=== PATIENT | female | born 1935 | race Caucasian/White ===

== ENCOUNTER 2016-08-28 15:46 | Inpatient (IN) | payer OTHER ==
--- NOTE | ~2016-08-28 | US77 ---
[facility] A Service of [facility] RADIOLOGY TEXT RESULTS PATIENT: TAMIKO ROCKWELL LOCATION: [facility] : 35 UNIT #: [id number] AGE: [address]: Bethany Horne MD SEX: F ORDER DR: [id number] [facility] [address] [facility]. [place], [place] [address] [id number] I MR#: [id number] Acc #: [id number] NAME: TAMIKO ROCKWELL : 1935 SEX: F STUDY DATE/TIME: 09/01/2016 15:05 UNIT: C5B ROOM: 552 STUDY DESCRIPTION: US Kidney Bilateral Complete Attending Physician: Bethany Horne M.D. Ordering Physician: Bethany Horne M.D. Primary Care Physician: No Primary Care Physician MEDICAL IMAGING REPORT This report is preliminary unless electronic signature is present EXAM Bilateral renal ultrasound 09/01/2016 COMPARISON None. HISTORY Acute renal failure with eGFR of 24.3. FINDINGS The right kidney is echogenic. It is small about just under 8 cm in overall size with cortical thinning, but there is no hydronephrosis, solid mass or calcification. The left kidney is normal in size, 11 cm in craniocaudal dimension. Its echogenicity is difficult to head control clerk but there is no solid mass, calcification, or hydronephrosis. The urinary bladder is obscured by bowel gas. IMPRESSION 1. The left kidney appears normal, though the right is small and echogenic. There is no calcification or hydronephrosis on either side. Dictated by... Les Salguero M.D. THIS IS AN ELECTRONICALLY VERIFIED REPORT Les Salguero M.D. at 09/11/2016 4:00 PM ZHANG/rnr TD: 09/01/2016 23:44 JOB #: [id number] [facility] A Service of [facility] RADIOLOGY TEXT RESULTS PATIENT: TAMIKO ROCKWELL LOCATION: [facility] 230-01 : 35 UNIT #: [id number] AGE: [address]: Bethany Horne MD SEX: F ORDER DR: MEDICAL IMAGING REPORT Page 1 of 1 COPY
--- NOTE | ~2016-08-28 | CO ---
Unit #: [id number] #: [id number] Patient: TAMIKO ROCKWELL [id number] [address] [place], [place] [address] [id number] I MR#: [id number] NAME: TAMIKO ROCKWELL ROOM: 552 Age: 81 Sex: F Admission Date: 08/28/2016 : 1935 Attending Physician: Bethany Horne M.D. Primary Care Physician: No Primary Care Physician CONSULTATION REPORT CHIEF COMPLAINT Leukocytosis, sepsis. HISTORY OF PRESENT ILLNESS This is an 81-year-old female. She has multiple medical problems. She came to hospital with a mild declined performance and found to be septic. She is receiving Levaquin and then going to rehab. From a hematology point of view, CBC showed WBC 18, hemoglobin 11.2, MCV 86, and platelets 429. Neutrophils are 82%. I reviewed the peripheral smear. There is a left shift. There is no schistocyte. There are no blasts. (1) morphology is normal. RBC morphology is normal. Creatinine is 2, sodium 132, and LFTs are normal. REVIEW OF SYSTEMS CONSTITUTIONAL: No fever, no chills, no sweats, no weight loss. EYES: No visual symptoms. EARS, NOSE AND THROAT: There is no runny nose or sore throat or difficulty hearing. CARDIOVASCULAR: No chest pain. No shortness of breath. No palpitations. No orthopnea. No PND. RESPIRATORY: No cough. No wheezing. No hemoptysis. GASTROINTESTINAL: No nausea, vomiting, diarrhea, constipation, hematochezia or melena. GENITOURINARY: No urinary frequency, hesitancy or urgency. No blood in the urine. MUSCULOSKELETAL: No muscle or joint pain. NEUROLOGIC: No headache. No numbness or tingling. No weakness. No seizure. PSYCHIATRIC: No anxiety, depression or mood disturbance. ENDOCRINE: No excessive urination or thirst. DERMATOLOGIC: No rash or change in the skin. ALLERGIC/IMMUNOLOGIC: No symptoms. HEMATOLOGIC/LYMPHATIC: Denies any symptoms. PAST MEDICAL HISTORY Includes COPD, hypertension, and diabetes. SURGICAL HISTORY Cholecystectomy. ALLERGIES None. Unit #: [id number] #: [id number] Patient: TAMIKO ROCKWELL SOCIAL HISTORY Used to smoke 1 pack per day for more than 40 years. Denies alcohol. She used to work as a head waiter/waitress. FAMILY HISTORY Negative for cancer. MEDICATIONS Her current medications include: 1. Levemir. 2. Colace. 3. Ferrous gluconate. 4. Aspirin. 5. Zoloft. 6. Lipitor. 7. Synthroid. 8. Levaquin. PHYSICAL EXAMINATION VITALS: Afebrile, pulse 93, respiratory rate 18, O2 saturation 98%, and blood pressure 130/55. GENERAL: Patient is comfortable. ECOG is 0. The patient is pleasant. HEENT: Moist mucosa. Pupils equally reactive to light. Extraocular muscles intact. Sclerae anicteric. No obvious bleeding from nasal mucosa or oral mucosa. Scalp normal. Hearing normal. NECK: No JVD. No lymphadenopathy. LYMPHATIC/HEMATOLOGIC: There is no palpable adenopathy in the neck, axilla or inguinal area. CARDIOVASCULAR: S1, S2. Regular rate and rhythm. No S3 or S4. RESPIRATORY: Chest symmetrical, normal. Clear to auscultation bilaterally. No wheezes, no rales, no rhonchi. No dullness to percussion. ABDOMEN/GASTROINTESTINAL: Abdomen is soft, nontender, nondistended. No hepatosplenomegaly. EXTREMITIES: There is no clubbing, no cyanosis, no edema. No varicose veins. NEUROLOGICAL: Patient is alert, awake and oriented x3. Cranial nerves II-XII are intact. Sensory grossly intact. Motor is 4/5 in all four extremities. Gait is normal. Station is normal. Language is normal. Memory is normal. DTRs +2 in all four extremities. MUSCULOSKELETAL: No joint swelling. No bony tenderness. No muscle tenderness. SKIN: No petechiae, no rash, no ecchymosis. PSYCHIATRIC: No anxiety. No delusions or hallucinations. There is no agitation. Eye contact is normal. Affect is appropriate. There is no flight of ideas. DIAGNOSTIC STUDIES LABORATORY: As mentioned above. ASSESSMENT AND PLAN This is an 81-year-old female with the following active issues: Leukocytosis. It is mild. There is also mild thrombocytosis. This could be due to infection; however, given patient's age, there is a possibility that she may have myeloproliferative disorder. PLAN I will follow the patient outpatient. As an outpatient, we will do flow Unit #: [id number] #: [id number] Patient: TAMIKO ROCKWELL cytometry (2) . In the future, may need bone marrow biopsy. I need to speak to a family member. Patient has some memory problem. Dictated by... Velia Jeter TD: 09/01/2016 06:47 JOB #: [id number] CONSULTATION REPORT Page 1 of 1 X Susi Hart MD X CONSULTATION REPORT
--- NOTE | ~2016-08-28 | EKG ---
PATIENT: TAMIKO ROCKWELL UNIT #: [id number] Ventricular Rate: 99 BPM Atrial Rate: 99 BPM P-R Interval: 126 ms QRS Duration: 70 ms Q-T Interval: 330 ms QTC Calculation(Bezet): 423 ms P Tivoli: 63 degrees Calculated R Tivoli: -46 degrees Calculated T Tivoli: 86 degrees Diagnosis Line: Normal sinus rhythm Diagnosis Line: Left axis deviation Diagnosis Line: Nonspecific T wave abnormality Diagnosis Line: Abnormal ECG Diagnosis Line: When compared with ECG of 22-AUG-2015 19:51, Diagnosis Line: T wave inversion less evident in Anterolateral Diagnosis Line: leads Diagnosis Line: Confirmed by URBAN NIEVES MD ([id number]) on Diagnosis Line: 08/28/2016 10:22:59 PM INTERPRETING MD: JONY
--- NOTE | ~2016-08-28 | TOC ---
Unit #: [id number] #: [id number] Patient: TAMIKO ROCKWELL [id number] [address] [address] [id number] I MR#: [id number] NAME: TAMIKO ROCKWELL. ROOM: 55 Age: 81 Sex: F Admission Date: 08/28/2016 : 1935 Attending Physician: Bethany Horne M.D. Primary Care Physician: No Primary Care Physician TRANSFER OF CARE SUMMARY ANTICIPATED DATE OF DISCHARGE 09/01/2016. PRINCIPAL DIAGNOSES 1. Sepsis secondary to proteus vulgaris urinary tract infection. 2. Acute kidney injury on chronic kidney disease, stage 3, prerenal. Baseline creatinine approximately 1.2. 3. Hypertensive urgency. 4. Diabetes mellitus type 2. Uncontrolled, with hemoglobin A1c of 8.1. 5. Hypothyroidism. Uncontrolled. 6. Acute on likely chronic hypoxic respiratory failure, maintained on 2 liters oxygen per nasal cannula continuously. 7. Iron deficiency anemia. 8. Thrombocytosis secondary to iron deficiency. 9. Chronic leukocytosis. 10. Overflow incontinence, now maintaining Gilbert catheter. 11. Vascular dementia. 12. Medical noncompliance. 13. Chronic obstructive pulmonary disease. 14. Under weight. CONSULTANTS Dr. Hart, oncology. DIAGNOSTIC DATA IMAGING: Chest x-ray on 08/29/2016 with no acute abnormalities. Calcification of the lower neck within the carotid arteries noted. Degenerative changes of the cervical spine bilaterally noted. CLINICAL HISTORY/HOSPITAL COURSE Ms. Rockwell is an 81-year-old female who presented to the emergency department with increasing weakness. Please refer to history and physical for further details. In the emergency department the patient underwent urinalysis, concerning for urinary tract infection. Creatinine was mildly elevated at 1.2. She was subsequently admitted for further evaluation. The patient was started empirically on Rocephin for urinary tract infection. However, her white blood cell count increased, but I will note she remained afebrile. She was empirically changed to Levaquin. Urine culture ultimately grew proteus vulgaris and after discussion with micro lab this organism is sensitive to Levaquin. ill complete a one-week course of Levaquin. Unit #: [id number] #: [id number] Patient: TAMIKO ROCKWELL In regard to the patient's renal function, unfortunately her creatinine has begun to increase during hospitalization. She still has decreased oral intake and I will initiate IV fluids. She also has chronic incontinence and postvoid residual on bladder scan was greater than 300. I suspect her incontinence is overflow and Gilbert catheter has been placed. After discussion with the family, this appears to be a chronic problem at home and I would recommend Gilbert catheter fci. The patient was also significantly hyperglycemic with blood sugars in the 400s. She was not following a diabetic diet at home. I placed her on Levemir here with sliding scale insulin and sugars are now much better controlled. I recommend Levaquin on discharge as well. The patient was also found to be significantly hypothyroid with a TSH greater than 20, though T3 and T4 were low levels of normal. Again, after discussion with the family the patient has not been taking her thyroid medication for at least five or six months. I placed her back on her prior dose and TSH will need to be rechecked in six weeks. The patient was also found to have a mild microcytic anemia and was found to be iron deficient. She also has associated thrombocytosis. She has been placed on oral iron supplementation in addition to Colace. The patient was also found to have uncontrolled hypertension. Medication has been adjusted and on current medications blood pressure is much better controlled. The patient also has significant underlying dementia and was living at home and being monitored by family. I did discuss with the patient's daughter that I would recommend, given the patient's decline over the last year, that she would benefit from long-term nursing care versus a 24-hour care at home. The plan at this point is for the patient to discharge to rehab and I believe discussions regarding long-term care are going to continue there. Assuming the patient's renal function improves following Gilbert catheter placement with some IV fluids, I think she can be discharged to rehab tomorrow. I will note she does have chronic leukocytosis. This is improving on antibiotic therapy, but I am going to ask hematology to evaluate prior to discharge, but any further workup I think can be safely done as an outpatient. Further hospital course to be dictated as an addendum. Dictated by... Bethany Horne M.D. Haile TD: 08/31/2016 11:02 JOB #: [id number] CC: Dillan Marino M.D. Unit #: [id number] #: [id number] Patient: TAMIKO ROCKWELL TRANSFER OF CARE SUMMARY Page 1 of 1 X Bethany Horne MD X TRANSFER OF CARE SUMMARY
--- NOTE | ~2016-08-28 | CR72 ---
[facility] A Service of [facility] RADIOLOGY TEXT RESULTS PATIENT: TAMIKO ROCKWELL LOCATION: [facility] : 35 UNIT #: [id number] AGE: [address]: Bethany Horne MD SEX: F ORDER DR: [id number] [facility] [address] [facility]. [place], [place] [address] [id number] I MR#: [id number] Acc #: [id number] NAME: TAMIKO ROCKWELL : 1935 SEX: F STUDY DATE/TIME: 08/28/2016 16:50 UNIT: C5B ROOM: 2 STUDY DESCRIPTION: CR Chest Single View Portable Attending Physician: Gabriela Trammell M.D. Ordering Physician: Zhen Ross M.D. Primary Care Physician: No Primary Care Physician MEDICAL IMAGING REPORT This report is preliminary unless electronic signature is present EXAM Portable AP view of the chest. COMPARISON August 22, 2015, and January 15, 2014. INDICATIONS 81-year-old female with dyspnea with activity and weakness since yesterday. Hypertension. FINDINGS Cardiomediastinal silhouette is stable. There is stable mild tortuosity of the ascending thoracic aorta. Mild stable left apical pleural parenchymal scarring. No evidence of pneumothorax, pleural effusion or acute airspace disease. Multilevel bilateral degenerative changes of the visualized cervical spine. Calcifications in the bilateral neck, likely within the carotid arteries. IMPRESSION 1. No acute radiographic abnormality of the chest. Normal heart size. 2. Calcifications in the lower neck, possibly within the carotid arteries. 3. Degenerative changes of the cervical spine bilaterally. Dictated by... Tavares Lewis M.D. THIS IS AN ELECTRONICALLY VERIFIED REPORT Tavares Lewis M.D. at 09/02/2016 8:05 PM [place] TD: 08/28/2016 22:36 [facility] A Service of [facility] RADIOLOGY TEXT RESULTS PATIENT: TAMIKO ROCKWELL LOCATION: [facility] 230-01 : 35 UNIT #: [id number] AGE: [address]: Bethany Horne MD SEX: F ORDER DR: JOB #: [id number] MEDICAL IMAGING REPORT Page 1 of 1 COPY
--- NOTE | ~2016-08-28 | HP ---
Unit #: [id number] #: [id number] Patient: TAMIKO ROCKWELL [id number] [address] [address] [id number] I MR#: [id number] NAME: TAMIKO ROCKWELL. ROOM: 55 Age: 81 Sex: F Admission Date: 08/28/2016 : 1935 Attending Physician: Gabriela Trammell M.D. Primary Care Physician: Primary Care Physician No HISTORY AND PHYSICAL CHIEF COMPLAINT Weakness. HISTORY OF PRESENT ILLNESS The patient is an 81-year-old female with past medical history of diabetes, hypothyroidism, COPD, memory loss, who presented to the emergency department for evaluation of the above. History is obtained from chart review and discussion with ER staff as well as from the patient. According to the patient, she was brought to the emergency department because her son thought she "looked bad." She states that she has been weak for the past couple of days. She denies any fever. No cough or cold symptoms. She denies any chest pain. She denies any vomiting or diarrhea. No urinary symptoms. In the emergency department, urinalysis shows findings concerning for urinary tract infection. BUN 44, creatinine 1.2, glucose 353. She was given 1 liter of normal saline as well as a gram of Rocephin. She is being admitted to [facility] for evaluation and further treatment. PAST MEDICAL HISTORY 1. Admission to [facility] 08/21 through 08/25/2015 for hypertensive urgency and urinary retention. 2. Diabetes. 3. Hypothyroidism. 4. COPD with continued tobacco abuse. 5. Memory loss. 6. Hypertension. 7. Hyperlipidemia. PAST SURGICAL HISTORY 1. Cataract extraction. 2. Cholecystectomy. ALLERGIES No known drug allergies. HOME MEDICATIONS 1. Levothyroxine 50 mcg daily. 2. Metformin 500 mg daily. 3. Amlodipine 10 mg daily. 4. Lipitor 20 mg daily. 5. Lisinopril 20 mg daily. Unit #: [id number] #: [id number] Patient: TAMIKO ROCKWELL 6. Aspirin 81 mg daily. 7. Zoloft 50 mg daily. SOCIAL HISTORY The patient lives alone. She smokes a little less than a pack of cigarettes daily. She denies alcohol use. She has a walker. FAMILY HISTORY Notable for her father having emphysema. REVIEW OF SYSTEMS A complete review of systems is negative except as indicated in the HPI. PHYSICAL EXAMINATION VITAL SIGNS: Temperature 97.7, pulse 99, respirations 32, blood pressure 225/114, oxygen saturation 94% on room air. GENERAL: The patient is a female who is awake and alert in no acute distress. HEENT: Head is atraumatic. Mucous membranes are dry. NECK: Supple. Trachea is midline. LUNGS: Clear to auscultation bilaterally. Breathing is mildly labored with conversation. HEART: Regular rate and rhythm. ABDOMEN: Soft, nontender. Bowel sounds present in all four quadrants. EXTREMITIES: Nontender with no pedal edema. NEUROLOGIC: Patient is awake and alert. She is oriented x3. She follows commands. PSYCHIATRIC: The patient is somewhat agitated. She initially is refusing to stay but ultimately was cooperative. SKIN OF EXAMINED AREAS: Warm and dry. DIAGNOSTIC STUDIES LABORATORY: Complete blood count notable for white blood cell count of 14.1. Troponin less than 0.05. Lactic acid 1.8. Urinalysis notable for 2+ leukocyte esterase, positive nitrite, 2+ protein, greater than 1000 glucose, 100-200 wbc's, 4+ bacteria, occasional squamous cells. Comprehensive metabolic panel notable for a sodium of 134, chloride 97, glucose 353, BUN 44, creatinine 1.2, alkaline phosphatase 105, CK 29. IMAGING: Chest x-ray shows no acute abnormality. CARDIOVASCULAR: EKG shows normal sinus rhythm with a rate of 99 beats per minute. ASSESSMENT The patient is an 81-year-old female with: 1. Generalized weakness. 2. Acute kidney injury. The patient's creatinine was 1 on 08/24/2015, it is 1.2 today. She is on lisinopril and metformin which could be contributing. 3. Urinary tract infection. The patient received 1 gram of Rocephin in the emergency department. Urine culture from 08/22/2015 grew greater than 100,000 of mixed Gram-positive likely contaminant. 4. Sepsis with an initial lactic acid of 1.8. 5. Uncontrolled diabetes with a glucose of 353 on comprehensive metabolic panel. 6. Hypothyroidism. 7. Chronic obstructive pulmonary disease with continued tobacco abuse. Unit #: [id number] #: [id number] Patient: TAMIKO ROCKWELL 8. Hypertension, uncontrolled. 9. Hyperlipidemia. 10. Memory loss. PLAN 1. Admit to intermediate level. 2. Healthy-heart consistent carb diet if passes bedside swallow. 3. PT/OT to evaluate and treat. 4. Fall precautions. 5. Normal saline at 75 mL per hour. 6. Blood cultures x2. 7. Urine culture and sensitivity on urine in the lab. 8. Rocephin 1 gram IV daily. 9. Sepsis protocol with repeat lactic acid. 10. Hemoglobin A1c. 11. Low dose sliding scale insulin with Accu-Cheks. 12. TSH. 13. Serial cardiac enzymes. 14. Strict I's and O'. 15. Bladder scan. 16. Check post-void residual. 17. Hold nephrotoxic medications. 18. Neuro checks. 19. P.r.n. hydralazine. 20. Repeat labs in the morning. 21. SCDs for DVT prophylaxis. 22. Additional workup and consultants based on above. Dictated by Velia Tristan/nayana TD: 08/28/2016 23:45 JOB #: [id number] HISTORY AND PHYSICAL Page 1 of 1 X Gabriela Trammell MD X HISTORY AND PHYSICAL
--- NOTE | ~2016-08-28 | DS ---
Unit #: [id number] #: [id number] Patient: TAMIKO ROCKWELL [id number] [facility]. [place], [place] [address] [id number] I MR#: [id number] NAME: TAMIKO ROCKWELL. ROOM: 230 Age: 81 Sex: F Admission Date: 08/28/2016 : 1935 Discharge Date: 09/01/2016 Attending Physician: Bethany Horne M.D. Primary Care Physician: No Primary Care Physician DISCHARGE SUMMARY Please see transfer of care summary as dictated by Dr. Horne from 08/31/2016 for details of hospital course. Today on BMP creatinine returns back at 1.9 with an estimated GFR of 24. Yesterday his creatinine was approximately 1.8. Also noted patient's hemoglobin today was 10.7 and remains with elevated white count of 17.9. Dr. Hart of hematology services saw and evaluated patient and recommended outpatient followup in approximately four weeks. At this point in time we will avoid nephrotoxic medications. Her creatinine now likely represents her new baseline, although she was initially admitted secondary to with normal creatinine of 1.2. It seems likely that this represents her new baseline creatinine level. Will avoid nephrotoxic medications. Recheck a BMP in approximately 7-10 days when the patient is on rehab. But clinically speaking she appears stable for discharge. Overall her long-term prognosis is poor. She likely will go through rehab and consideration for long-term care has already been discussed by Dr. Horne with the patient's daughter. Unfortunately it seems like this patient is declining fairly rapidly, especially over the past few months. Consideration may be given to hospice as well secondary to her history of moderate to severe and end stage dementia. At this point in time, we will plan for discharge to rehab to see how she does and then further disposition after rehab at that point in time. Please see above for transfer of care summary. DISCHARGE MEDICATIONS 1. Zoloft 50 mg p.o. daily. 2. Norvasc 10 mg p.o. daily. 3. Lipitor 20 mg p.o. q.h.s. 4. Hydralazine 50 mg p.o. t.i.d. 5. Levemir 17 units subcu 0800. 6. NovoLog medium dose sliding scale with insulin. Accu-Cheks q. a.c. and q.h.s. 7. Ferrous gluconate 324 mg p.o. daily. 8. Aspirin 81 mg daily. 9. Levaquin 250 mg p.o. daily until 09/04/2016. 10. Synthroid 50 mcg p.o. daily. DISCHARGE CONDITION Stable. Unit #: [id number] #: [id number] Patient: TAMIKO ROCKWELL DISCHARGE DISPOSITION Rehab. LONG-TERM PROGNOSIS Guarded/poor. Dictated by... Velia Jaime/doug TD: 09/03/2016 12:38 JOB #: [id number] DISCHARGE SUMMARY Page 1 of 1 X Matt Bishop MD X DISCHARGE SUMMARY
--- NOTE | ~2016-08-28 | DS ---
Unit #: [id number] #: [id number] Patient: TAMIKO ROCKWELL [id number] [address] [place], [place] [address] [id number] I MR#: [id number] NAME: TAMIKO ROCKWELL. ROOM: 230 Age: 81 Sex: F Admission Date: 08/28/2016 : 1935 Discharge Date: 09/03/2016 Attending Physician: Bethany Horne M.D. Primary Care Physician: No Primary Care Physician DISCHARGE SUMMARY ADDENDUM ADDITIONAL DISCHARGE DIAGNOSIS Chronic hypoxic respiratory failure, maintained on 2 liters of oxygen per nasal cannula continuously. ADDITIONAL HOSPITAL COURSE The patient was maintained in the hospital due to her acute kidney injury. Unfortunately, there were no rehab beds available over the weekend. On day of discharge, creatinine has now returned to 1.4, which is the patient's baseline. The patient has, otherwise, remained clinically stable. She can be discharged to rehab when bed is available. The patient was seen in consultation by oncology, and they feel the patient's leukocytosis is infection related. It is improving. This can be followed up at rehab. DISCHARGE CONDITION Stable. DISCHARGE STATUS Discharge to rehab. DISCHARGE MEDICATIONS 1. Oxygen at 2 liters per nasal cannula continuously. 2. Zoloft 50 mg p.o. daily. 3. Combivent nebulizer treatments 3 mL inhaled q.4 hours p.r.n. shortness of breath. 4. Dulera 200/5 mcg 2 puffs b.i.d. 5. Norvasc 10 mg daily. 6. Colace 100 mg b.i.d. 7. Lipitor 20 mg at bedtime. 8. Hydralazine 50 mg t.i.d. 9. Levemir 17 units subcutaneously in the morning. 10. NovoLog medium dose sliding scale with meals and at bedtime. 11. Ferrous gluconate 324 mg b.i.d. 12. Aspirin 81 mg daily. 13. Tramadol 50 mg p.o. q.6 hours p.r.n. pain. 14. Levaquin 250 mg p.o. daily, stop after dose on September 04, 2016. 15. Levothyroxine 50 mcg p.o. daily. DISCHARGE INSTRUCTIONS The patient was instructed to follow a constant carb diet. She should maintain Accu-Cheks a.c. and h.s. She can increase her activity as Unit #: [id number] #: [id number] Patient: TAMIKO ROCKWELL. Patient should also maintain indwelling Gilbert catheter. FOLLOWUP 1. The patient will follow up with the facility director upon arrival. 2. She can follow up with her primary care provider, which is Dr. Marino, upon discharge from rehab. 3. Code status needs to continue to be discussed with the patient and family. Dictated by... Bethany Horne M.D. JANE/lyle TD: 09/03/2016 12:12 JOB #: [id number] DISCHARGE SUMMARY Page 1 of 1 X Bethany Horne MD X DISCHARGE SUMMARY
[~2016-08-28 15:46] MED LIST: ADVIL200 M2 PO; AMLODIPINE BESY10 MG PO; LEVOTHYROXINE50 MCG PO; LIPITOR20 MG PO; LISINOPRIL20 MG PO; METFORMIN HCL500 M1 PO
[2016-08-28] MEDS ORDERED: ZOLOFT (16:15)
[2016-08-28] MEDS ORDERED: ASPIRIN81 M2 PO (16:15)
[2016-08-28 16:56] LABS: BASOPHIL# 0.1 X10e3 (0-0.3); BASOPHIL% 0.6 % (0-2.5); DIFF IND NO; EOSINOPHIL# 0.4 X10e3 (0-0.7); HEMATOCRIT 43.2 % (35.0-45.0); HEMOGLOBIN 14.2 gm/dL (12.0-16.0); LYMPHOCYTE# 2.3 X10e3 (1.0-3.5); LYMPHOCYTE% 16.3 % (17.0-45.0); MEAN CELL VOLUME 85.1 FL (83-96); MEAN PLATELET VOLUME 7.5 FL (6.5-11.5); MONOCYTE% 7.4 % (3.0-12.0); NEUTROPHIL# 10.3 X10e3 (1.5-7.1); NEUTROPHIL% 72.7 % (40-75); PLATELET COUNT 420 X10e3 (140-420); RED BLOOD COUNT 5.07 X10e (3.90-5.30); RED CELL DISTRIBUTION WIDTH 16.9 % (11.0-15.5); WHITE BLOOD COUNT 14.1 X10e3 (4.0-10.5)
[2016-08-28 16:59] LABS: URINE SOURCE CLEAN CATCH
[2016-08-28 17:04] LABS: URINE APPEARANCE CLOUDY; URINE BILIRUBIN NEG (NEG); URINE BLOOD TRACE (NEG); URINE COLOR YELLOW; URINE GLUCOSE >1000 MG/DL (NEG); URINE KETONE NEG (NEG); URINE LEUKOCYTE ESTERASE 2+ (NEG); URINE NITRATE POS (NEG); URINE PROTEIN 2+ (NEG)
[2016-08-28 17:06] LABS: CULTURE INDICATED? YES; URINE BACTERIA AUWI 4+ (NEGATIVE); URINE SQUAMOUS EPITHELIAL CELL OCC /[HPF]; UWBCS1 AUWI 100-200 (0-5)
[2016-08-28 17:07] LABS: POC - CKMB 2.8 ng/mL (0.0-7.9); POC - TROPONIN <0.05 ng/mL (<=0.05)
[2016-08-28 17:23] LABS: BILIRUBIN, DIRECT 0.1 mg/dL (0.0-0.2); BILIRUBIN,INDIRECT 0.3 mg/dL (0.0-0.9); BILIRUBIN,TOTAL 0.4 mg/dL (0.2-2.0); BUN/CREATININE RATIO 36.66; CALCIUM SERUM 9.7 mg/dL (8.4-10.2); CREATININE SERUM 1.2 mg/dL (0.6-1.4); GLOM FILT RATE Estimated 42.4 mL/min (>60); POTASSIUM 4.1 mmol/L (3.5-5.1); PROTEIN TOTAL SERUM 7.8 g/dL (6.0-8.3)
[2016-08-28] MEDS ORDERED: ZOLOFT PO (17:41)
[2016-08-28 19:46] LABS: CK TOTAL 39 IU/L (26-140)
[2016-08-29 03:25] LABS: BASOPHIL# 0.1 X10e3 (0-0.3); BASOPHIL% 0.7 % (0-2.5); EOSINOPHIL# 0.2 X10e3 (0-0.7); EOSINOPHIL% 0.8 % (0.0-7.0); HEMATOCRIT 40.7 % (35.0-45.0); HEMOGLOBIN 13.3 gm/dL (12.0-16.0); LYMPHOCYTE# 1.8 X10e3 (1.0-3.5); LYMPHOCYTE% 9.1 % (17.0-45.0); MEAN CELL VOLUME 84.9 FL (83-96); MEAN CORPUSCULAR HEMOGLOBIN 27.8 PG (28-34); MEAN CORPUSCULAR HGB CONC 32.7 g/dL (30-36); MONOCYTE# 1.3 X10e3 (0-1.0); MONOCYTE% 6.5 % (3.0-12.0); NEUTROPHIL# 16.6 X10e3 (1.5-7.1); NEUTROPHIL% 82.9 % (40-75); PLATELET COUNT 468 X10e3 (140-420); RED BLOOD COUNT 4.79 X10e (3.90-5.30); RED CELL DISTRIBUTION WIDTH 16.1 % (11.0-15.5); WHITE BLOOD COUNT 20.1 X10e3 (4.0-10.5)
[2016-08-29 03:26] LABS: DIFF IND YES
[2016-08-29 03:34] LABS: CK TOTAL 54 IU/L (26-140)
[2016-08-29 03:49] LABS: BILIRUBIN,TOTAL 0.8 mg/dL (0.2-2.0); BUN/CREATININE RATIO 30.83; CALCIUM SERUM 9.3 mg/dL (8.4-10.2); CREATININE SERUM 1.2 mg/dL (0.6-1.4); GLOM FILT RATE Estimated 42.4 mL/min (>60); POTASSIUM 3.6 mmol/L (3.5-5.1); PROTEIN TOTAL SERUM 7.2 g/dL (6.0-8.3)
[2016-08-29 04:12] LABS: ANISOCYTOSIS SL; MICROCYTOSIS SL; PLATELET ESTIMATE NORMAL (NORMAL)
[2016-08-29 17:04] LABS: FREE T3 2.5 pg/mL (2.5-3.9)
[2016-08-29 17:05] LABS: FREE THYROXIN (T4) 0.81 ng/dL (0.58-1.64)
[2016-08-30 06:56] LABS: HEMATOCRIT 37.3 % (35.0-45.0); HEMOGLOBIN 11.6 gm/dL (12.0-16.0); MEAN CELL VOLUME 87.4 FL (83-96); MEAN CORPUSCULAR HEMOGLOBIN 27.3 PG (28-34); MEAN CORPUSCULAR HGB CONC 31.3 g/dL (30-36); MEAN PLATELET VOLUME 7.4 FL (6.5-11.5); RED BLOOD COUNT 4.27 X10e (3.90-5.30); RED CELL DISTRIBUTION WIDTH 17.1 % (11.0-15.5); WHITE BLOOD COUNT 22.4 X10e3 (4.0-10.5)
[2016-08-30 07:08] LABS: BUN/CREATININE RATIO 32.85; CALCIUM SERUM 9.4 mg/dL (8.4-10.2); CREATININE SERUM 1.4 mg/dL (0.6-1.4); GLOM FILT RATE Estimated 35.1 mL/min (>60); POTASSIUM 4.3 mmol/L (3.5-5.1)
[2016-08-31 06:47] LABS: HEMATOCRIT 34.5 % (35.0-45.0); HEMOGLOBIN 11.2 gm/dL (12.0-16.0); MEAN CELL VOLUME 86.6 FL (83-96); MEAN CORPUSCULAR HEMOGLOBIN 28.1 PG (28-34); MEAN CORPUSCULAR HGB CONC 32.4 g/dL (30-36); MEAN PLATELET VOLUME 7.2 FL (6.5-11.5); RED BLOOD COUNT 3.98 X10e (3.90-5.30); RED CELL DISTRIBUTION WIDTH 17.1 % (11.0-15.5)
[2016-08-31 07:21] LABS: BUN/CREATININE RATIO 33.33; CALCIUM SERUM 9.2 mg/dL (8.4-10.2); CREATININE SERUM 1.8 mg/dL (0.6-1.4); GLOM FILT RATE Estimated 25.9 mL/min (>60); POTASSIUM 4.1 mmol/L (3.5-5.1)
[2016-08-31 15:36] LABS: CALCIUM SERUM 8.9 mg/dL (8.4-10.2); GLOM FILT RATE Estimated 22.8 mL/min (>60)
[2016-09-01 06:06] LABS: HEMATOCRIT 33.5 % (35.0-45.0); HEMOGLOBIN 10.7 gm/dL (12.0-16.0); MEAN CELL VOLUME 87.2 FL (83-96); MEAN CORPUSCULAR HGB CONC 32.1 g/dL (30-36); MEAN PLATELET VOLUME 7.2 FL (6.5-11.5); RED BLOOD COUNT 3.84 X10e (3.90-5.30); RED CELL DISTRIBUTION WIDTH 17.4 % (11.0-15.5); WHITE BLOOD COUNT 17.9 X10e3 (4.0-10.5)
[2016-09-01 06:22] LABS: BUN/CREATININE RATIO 37.36; CALCIUM SERUM 8.7 mg/dL (8.4-10.2); CREATININE SERUM 1.9 mg/dL (0.6-1.4); GLOM FILT RATE Estimated 24.3 mL/min (>60); POTASSIUM 4.1 mmol/L (3.5-5.1)
[2016-09-01 14:46] LABS: TMH HEPATITIS B SURFACE AG -JH Negative (Negative); TMH HEPATITIS C AB - JH Negative (Negative)
[2016-09-02 11:32] LABS: BUN/CREATININE RATIO 40.58; CALCIUM SERUM 9.4 mg/dL (8.4-10.2); CREATININE SERUM 1.7 mg/dL (0.6-1.4); GLOM FILT RATE Estimated 27.8 mL/min (>60); POTASSIUM 4.1 mmol/L (3.5-5.1)
[2016-09-03 06:41] LABS: HEMATOCRIT 28.7 % (35.0-45.0); HEMOGLOBIN 9.5 gm/dL (12.0-16.0); MEAN CELL VOLUME 85.5 FL (83-96); MEAN CORPUSCULAR HEMOGLOBIN 28.2 PG (28-34); MEAN PLATELET VOLUME 7.5 FL (6.5-11.5); RED BLOOD COUNT 3.35 X10e (3.90-5.30); RED CELL DISTRIBUTION WIDTH 17.3 % (11.0-15.5); WHITE BLOOD COUNT 14.7 X10e3 (4.0-10.5)
[2016-09-03 07:15] LABS: BUN/CREATININE RATIO 44.28; CALCIUM SERUM 9.3 mg/dL (8.4-10.2); CREATININE SERUM 1.4 mg/dL (0.6-1.4); GLOM FILT RATE Estimated 35.1 mL/min (>60); POTASSIUM 3.9 mmol/L (3.5-5.1)
== END 2016-09-03 16:59 | DRG 871 ==
LOC: CED 15:46 → CEDOF 18:30 → CED 18:40 → CEDOF 18:40 → C5B 21:02 → C2A 09-02 14:56
PROVIDERS: Emergency Medicine; Family Medicine; Internal Medicine
DX: A41.9 Sepsis, unspecified organism (principal); J96.21 Acute and chronic respiratory failure with hypoxia; N17.9 Acute kidney failure, unspecified; F17.210 Nicotine dependence, cigarettes, uncomplicated; I12.9 Hypertensive chronic kidney disease with stage 1 through stage 4 chronic kidney disease, or unspecified chronic kidney disease; D50.9 Iron deficiency anemia, unspecified; N39.0 Urinary tract infection, site not specified; I16.1 Hypertensive emergency; B96.4 Proteus (mirabilis) (morganii) as the cause of diseases classified elsewhere; F01.50 Vascular dementia, unspecified severity, without behavioral disturbance, psychotic disturbance, mood disturbance, and anxiety; E11.65 Type 2 diabetes mellitus with hyperglycemia; E03.9 Hypothyroidism, unspecified; J44.9 Chronic obstructive pulmonary disease, unspecified; Z98.49 Cataract extraction status, unspecified eye; Z90.49 Acquired absence of other specified parts of digestive tract; E78.5 Hyperlipidemia, unspecified; D47.3 Essential (hemorrhagic) thrombocythemia; N18.3 Chronic kidney disease, stage 3 (moderate); E86.0 Dehydration; N39.490 Overflow incontinence; Z91.19 Patient's noncompliance with other medical treatment and regimen; R63.6 Underweight
CPT/HCPCS: 36415; 71010; 76770; 80048; 80053; 80076; 81003; 82550; 82553; 82607; 82947; 83036; 83540; 83550; 83605; 84439; 84443; 84481; 84484; 85025; 85027; 86803; 87040; 87086; 87088; 87186; 87340; 87806; 93005; 94640; 94664; 94760; 96360; 97110; 97116; 97162; 97166; 97530; 97535; 99285; G8978-GP; G8979-GP; G8987-GO; G8988-GO; J0360; J0696; J1630; J1815; J1956; J2405

== ENCOUNTER 2016-09-11 10:33 | Inpatient (IN) | payer OTHER ==
--- NOTE | ~2016-09-11 | CR72 ---
[facility] A Service of [facility] & [facility] RADIOLOGY TEXT RESULTS PATIENT: TAMIKO ROCKWELL LOCATION: [facility] 56 : 35 UNIT #: [id number] AGE: [address]: Kavon Huff MD SEX: F ORDER DR: [id number] [facility] [address] [place], [place] [address] [id number] I MR#: [id number] Acc #: [id number] NAME: TAMIKO ROCKWELL : 1935 SEX: F STUDY DATE/TIME: 09/14/2016 6:17 UNIT: [facility] ROOM: [facility] STUDY DESCRIPTION: CR Chest Single View Portable Attending Physician: Kavon Huff M.D. Ordering Physician: Lesa Zaman M.D. Primary Care Physician: No Primary Care Physician MEDICAL IMAGING REPORT This report is preliminary unless electronic signature is present EXAM Single view chest COMPARISON Single portable AP view of the chest compared to 09/13/2016. FINDINGS Heart is enlarged. Mild pulmonary vascular congestion is slightly improved. The right pleural effusion has slightly diminished. IMPRESSION Slight improvement in interstitial edema and pleural effusion. Dictated by... Johnathon Sanchez M.D. THIS IS AN ELECTRONICALLY VERIFIED REPORT Johnathon Sanchez M.D. at 09/14/2016 3:06 PM JONES/robni TD: 09/14/2016 11:10 JOB #: [id number] MEDICAL IMAGING REPORT Page 1 of 1 COPY
--- NOTE | ~2016-09-11 | CO ---
Unit #: [id number] #: [id number] Patient: TAMIKO ROCKWELL [id number] [address] [place], [place] [address] [id number] I MR#: [id number] NAME: TAMIKO ROCKWELL ROOM: [facility] Age: 81 Sex: F Admission Date: 09/11/2016 : 1935 Attending Physician: Kavon Huff M.D. Primary Care Physician: Primary Care Physician No CONSULTATION REPORT Medical consult was requested by Dr. Huff and completed on 09/12/2016. HISTORY OF PRESENT ILLNESS This is an 81-year-old female, who is being consulted for possible CHF exacerbation. She has a past medical history of hypertension, hyperlipidemia, chronic kidney disease, COPD, type 2 diabetes, dementia, hypothyroidism, anemia, and chronic respiratory failure. She was also recently admitted on 08/28 for UTI and treated for this here. She presented to the ER from rehab for acute shortness of breath. While in rehab, she was found to have an O2 of 80% and ambulance was called, and she was transferred here. She has dementia and is a very poor historian and is unable to answer questions about her current history. In the emergency department, her temperature was 98.8 rectally, respirations were 28, O2 was 91% on a 40% venturi mask, heart rate was 108, and blood pressure was 173/81. LABORATORY DATA Her initial labs on presenting to the ER; white blood cells are 20.5, hemoglobin 9.5, hematocrit 30.2, and platelets 507. Glucose 300, BUN 36, creatinine 1.3, sodium 139, potassium 4.3, chloride 96, CO2 of 31, calcium 9.2, and BNP 209. UA in the ER showed positive nitrites and positive bacteria. Point of care troponin was less than 0.05. PAST MEDICAL HISTORY 1. Hypertension. 2. Hyperlipidemia. 3. Dementia. 4. Chronic kidney disease. 5. Chronic obstructive pulmonary disease. 6. Type 2 diabetes. 7. Hypothyroidism. 8. Anemia. 9. Chronic respiratory failure. 10. Recent admission on August 28 to September 03 for sepsis secondary to UTI. PAST SURGICAL HISTORY 1. Cataract surgery. 2. Cholecystectomy. SOCIAL HISTORY The patient has a 65 pack-year smoking history. No alcohol use. Walks with a walker. Previously living alone, however, plans to live with her son upon discharge. Unit #: [id number] #: [id number] Patient: TAMIKO ROCKWELL CODE STATUS She is a full code. FAMILY HISTORY Father has emphysema. ALLERGIES No known drug allergies. HOME MEDICATIONS 1. Synthroid 50 mcg daily. 2. Prednisone 20 mg daily. 3. MiraLAX daily. 4. Senna two tablets daily. 5. Aspirin 81 mg p.o. daily. 6. Zoloft 50 mg p.o. daily. 7. Breo Ellipta 200/25 one puff inhaled daily. 8. DuoNeb q.4 hours p.r.n. 9. Hydralazine 50 mg p.o. t.i.d. 10. BuSpar 7.5 mg b.i.d. 11. Docusate 100 mg b.i.d. 12. Lipitor 20 mg p.o. at bedtime. 13. Norvasc 10 mg daily. 14. Ultram 50 mg q.6 hours p.r.n. 15. Dulcolax suppository daily p.r.n. 16. Milk of magnesia 30 mL daily p.r.n. 17. DuoNeb q.4 hours p.r.n. 18. NovoLog sliding scale. 19. Levemir 8 units subcu daily. REVIEW OF SYSTEMS A complete 10-point review of systems was completed, was negative except for details as noted above in HPI. PHYSICAL EXAMINATION VITAL SIGNS: Blood pressure 124/77, heart rate 89, temperature 97.8, respirations 24, and O2 96% on a Venturi mask. CONSTITUTIONAL: This is a pleasant 81-year-old female, who is alert and oriented, however, unable to answer all questions regarding history appropriately. She is currently tachypneic and is being transferred to the ICU. SKIN: Warm and dry. NECK: Supple. There is jugular vein distention. HEART: S1 and S2. Regular rate and rhythm. No murmurs, gallops, or rubs. LUNGS: Breath sounds diminished with wheezes. Respiratory rate is tachypneic at 22 per minute. ABDOMEN: Bowel sounds positive. Soft and nontender with palpation. EXTREMITIES: No lower extremity pitting edema. DP and PT pulses 2+. Capillary refill less than 3 seconds. DIAGNOSTIC STUDIES Hemoglobin 8.4 this is a change from August 28 when hemoglobin was 14.2, hematocrit 26.6, white blood cells 18.4, and platelets 449. Sodium 138, potassium 4.2, chloride 99, CO2 of 29, BUN 38, creatinine 1.2, glucose 183. UA positive nitrites. Troponin less than 0.03. ASSESSMENT AND PLAN Unit #: [id number] #: [id number] Patient: TAMIKO ROCKWELL 1. Acute on chronic respiratory failure. 2. Acute diastolic heart failure. We will diurese with Lasix 20 mg IV b.i.d. and check a BMP, troponins, and EKG in the morning. Her EF on echocardiogram on 09/11 with 55% to 60% with mild mitral stenosis, mild MR, and mild TR. 3. Hypertension. 4. Hyperlipidemia. 5. Dementia. 6. Chronic kidney disease. 7. Chronic obstructive pulmonary disease. 8. Type 2 diabetes. 9. Hypothyroidism. 10. Anemia. 11. Chronic respiratory failure. Thank you for allowing us to participate in the care of this patient. Dictated by... Milana Escoto/cooper TD: 09/13/2016 12:59 JOB #: [id number] CONSULTATION REPORT Page 1 of 1 X OSCAR URIAS APRN X CONSULTATION REPORT
--- NOTE | ~2016-09-11 | CR72 ---
[facility] A Service of [facility] & [facility] RADIOLOGY TEXT RESULTS PATIENT: TAMIKO ROCKWELL LOCATION: [place] [address] : [birth year] UNIT #: [id number] AGE: [address]: Gabriela Trammell MD SEX: F ORDER DR: [id number] [facility] [address] [place], [place] [address] [id number] E MR#: [id number] Acc #: [id number] NAME: TAMIKO ROCKWELL : 1935 SEX: F STUDY DATE/TIME: 09/11/2016 10:49 UNIT: [facility] ROOM: STUDY DESCRIPTION: CR Chest Single View Portable Attending Physician: Bossman Villalobos M.D. Ordering Physician: Bossman Villalobos M.D. Primary Care Physician: No Primary Care Physician MEDICAL IMAGING REPORT This report is preliminary unless electronic signature is present EXAM Portable chest. INDICATIONS Shortness breath today. COMPARISON 08/28/2016. FINDINGS Interval development a bilateral interstitial opacities. Small right pleural effusion. Heart size stable. The visualized osseous structures are unremarkable. IMPRESSION Development of bilateral interstitial opacities with small right pleural effusion. Differential diagnosis includes pulmonary edema or infectious/inflammatory process. Correlate clinically. Dictated by... Hipolito Francois M.D. THIS IS AN ELECTRONICALLY VERIFIED REPORT Hipolito Francois M.D. at 09/11/2016 6:06 PM ARS/gz TD: 09/11/2016 13:27 JOB #: [id number] MEDICAL IMAGING REPORT Page 1 of 1 COPY
--- NOTE | ~2016-09-11 | EKG ---
PATIENT: TAMIKO ROCKWELL UNIT #: [id number] Ventricular Rate: 96 BPM Atrial Rate: 96 BPM P-R Interval: 130 ms QRS Duration: 72 ms Q-T Interval: 358 ms QTC Calculation(Bezet): 452 ms P Hayden: 59 degrees Calculated R Hayden: -26 degrees Calculated T Hayden: 102 degrees Diagnosis Line: Normal sinus rhythm Diagnosis Line: Nonspecific T wave abnormality Diagnosis Line: Abnormal ECG Diagnosis Line: When compared with ECG of 11-SEP-2016 10:44, Diagnosis Line: Nonspecific T wave abnormality, worse in Diagnosis Line: Anterolateral leads Diagnosis Line: Confirmed by URBAN NIEVES MD ([id number]) on Diagnosis Line: 09/13/2016 7:14:24 AM INTERPRETING PEBBLES BORGES
--- NOTE | ~2016-09-11 | EKG ---
PATIENT: TAMIKO ROCKWELL UNIT #: [id number] Ventricular Rate: 102 BPM Atrial Rate: 102 BPM P-R Interval: 132 ms QRS Duration: 80 ms Q-T Interval: 340 ms QTC Calculation(Bezet): 443 ms P Hudson: 78 degrees Calculated R Hudson: -45 degrees Calculated T Hudson: 102 degrees Diagnosis Line: Sinus tachycardia Diagnosis Line: Left axis deviation Diagnosis Line: possible inferior infarct Diagnosis Line: Poor R wave progression questionable lead position Diagnosis Line: or body habitus Diagnosis Line: Abnormal ECG Diagnosis Line: When compared with ECG of 28-AUG-2016 16:29, Diagnosis Line: No significant change was found Diagnosis Line: Confirmed by URBAN NIEVES MD ([id number]) on Diagnosis Line: 09/11/2016 10:43:55 PM INTERPRETING MD: JONY
--- NOTE | ~2016-09-11 | HP ---
Unit #: [id number] #: [id number] Patient: TAMIKO ROCKWELL [id number] [address] [place], [place] [address] [id number] I MR#: [id number] NAME: TAMIKO ROCKWELL. ROOM: [address] Age: 81 Sex: F Admission Date: 09/11/2016 : 1935 Attending Physician: Gabriela Trammell M.D. Primary Care Physician: No Primary Care Physician HISTORY AND PHYSICAL CHIEF COMPLAINT Short of air from Signature. HISTORY OF PRESENT ILLNESS The patient is an 81-year-old female with past medical history of chronic respiratory failure, COPD, diabetes, chronic anemia, hypertension, hyperlipidemia, chronic kidney disease, vascular dementia, hypothyroidism who presented to the emergency department from rehab for evaluation of the above. Of note, the patient was hospitalized at [facility] August 28 through September 03, 2016 for sepsis secondary to Proteus vulgaris UTI. She was discharged to rehab on Levaquin with a stop date of September 04, 2016. The patient was apparently scheduled to return home on September 13, 2016. She had been doing well per the patient's son who is at bedside. Today, she became acutely short of breath with oxygen saturations in the 80s. She was sent to the emergency department for further evaluation. She has not had a cough. She denies any current chest pain. She has not had any difficulty swallowing. Appetite has been at baseline. There has been no vomiting or diarrhea. Upon arrival in the emergency department, the patient's oxygen saturation was 91% on 40% Venturi. Pulse was 108, respirations 28. Chest x-ray was done and showed bilateral interstitial opacities concerning for infectious versus inflammatory etiology. She was given vancomycin, Zosyn, and tobramycin. She is being admitted to [facility] for evaluation and further treatment. PAST MEDICAL HISTORY 1. Admission to [facility], August 28 through September 03, 2016, for sepsis secondary to Proteus vulgaris urinary tract infection. She was discharged home on Levaquin with a stop date of September 04, 2016. She was also seen in consultation by hematology regarding leukocytosis. They thought that it was infection related and recommended outpatient followup. White blood cell count was 14.7 on September 03, 2016. 2. Chronic respiratory failure on 2 L of oxygen per nasal cannula continuous. 3. COPD. 4. Diabetes: The patient's hemoglobin A1c was 8.1 on August 28, 2016. 5. Hypothyroidism: The patient's TSH was 21.5 on August 28, 2016. 6. Hypertension. 7. Hyperlipidemia. Unit #: [id number] #: [id number] Patient: TAMIKO ROCKWELL 8. Chronic kidney disease, stage 3 with a baseline creatinine of 1.2. 9. Vascular dementia. PAST SURGICAL HISTORY 1. Cataract surgery. 2. Cholecystectomy. SOCIAL HISTORY The patient has a [id number]-pjzd smoking history. She apparently quit smoking during the last hospital stay. There is no alcohol use. She walks with a walker. She was previously living alone but plans to return home and her son and is going to live with her. CODE STATUS Her code status is a full code. FAMILY HISTORY Notable for her dad having emphysema. ALLERGIES No known allergies. HOME MEDICATIONS 1. Synthroid 50 mcg daily. 2. Prednisone 20 mg daily. 3. MiraLax daily. 4. Senna two tablets daily. 5. Aspirin 81 mg daily. 6. Zoloft 50 mg daily. 7. Breo Ellipta 200/25 one puff inhaled daily. 8. DuoNeb q.4 hours. 9. Hydralazine 50 mg t.i.d. 10. BuSpar 7.5 mg twice daily. 11. Docusate 100 mg twice daily. 12. Lipitor 20 mg at bedtime. 13. Norvasc 10 mg daily. 14. Ultram 50 mg q.6 hours p.r.n. 15. Dulcolax suppository daily p.r.n. 16. Milk of Magnesia 30 mL daily p.r.n. 17. DuoNeb q.4 hours p.r.n. 18. NovoLog sliding scale. 19. Levemir 8 units subcutaneous daily. REVIEW OF SYSTEMS A complete review of systems is negative except as indicated in the HPI. DIAGNOSTIC STUDIES LABORATORY: BNP is 209. Comprehensive metabolic panel notable for chloride of 96, glucose 300, BUN and creatinine 36 and 1.3 respectively, albumin 3.3. Complete blood count notable for white blood cell count of 20.5, hemoglobin and hematocrit 9.5 and 30.2 respectively, platelets 507,000. INR is 1. Troponin is less than 0.05. Arterial blood gas shows pH of 7.349, pCO2 of 61.6, pO2 of 70.5 on 40% Venturi. IMAGING: Chest x-ray shows bilateral interstitial opacities with small right pleural effusion concerning for edema versus infection versus inflammatory etiology. Unit #: [id number] #: [id number] Patient: TAMIKO ROCKWELL CARDIOVASCULAR: EKG shows sinus tachycardia with a rate of 102 beats per minute. PHYSICAL EXAMINATION VITAL SIGNS: Temperature is 98.8, pulse 108, respirations 28, blood pressure 173/81, oxygen saturation is 91% on 40% Venturi. GENERAL: The patient is a female is awake and alert. HEENT: The head is atraumatic. Mucous membranes are moist. NECK: Supple. Trachea is midline. CARDIOVASCULAR: Regular rate and rhythm. LUNGS: Demonstrate scattered inspiratory and expiratory wheezes. Breathing is not currently labored with conversation. ABDOMEN: Soft, nontender, nondistended with bowel sounds present in all four quadrants. EXTREMITIES: Nontender with no pedal edema. NEUROLOGIC: The patient is awake and alert. She is oriented to person and place. She follows commands. PSYCHIATRIC: Mood and affect are normal. The patient is cooperative. SKIN: Skin of examined areas is warm and dry. ASSESSMENT The patient is an 81-year-old female with: 1. Acute on chronic respiratory failure, hypoxic. 2. Possible healthcare-associated pneumonia. The patient received vancomycin, Zosyn, and tobramycin in the emergency department. 3. Possible sepsis. 4. Chronic obstructive pulmonary disease exacerbation. 5. Uncontrolled diabetes with hemoglobin A1c of 8.1 on August 28, 2016. 6. Acute on chronic anemia: The patient's hemoglobin was 9.5 on September 03, 2016. It is 9.5 today. 7. Hypertension. 8. Hyperlipidemia. 9. Chronic kidney disease, stage 3 with a baseline creatinine of 1.2. Creatinine is 1.3 today. 10. Vascular dementia. 11. Hypothyroidism. 12. Former smoker. PLAN 1. Admit to intermediate level. 2. Healthy heart consistent carb diet if passes bedside swallow. 3. Repeat ABG later this afternoon. 4. DuoNeb. 5. Solu-Medrol 80 mg IV q.12 hours. 6. Blood cultures x2. 7. Sputum culture and sensitivity. 8. Procalcitonin level. 9. Streptococcal and legionella urine antigens. 10. Vancomycin IV, tobramycin IV, and Zosyn IV for possible healthcare associated pneumonia pending further workup. 11. Sepsis protocol with STAT lactic acid and repeat. 12. Low-dose sliding scale insulin with Accu-Cheks. 13. Serial cardiac enzymes. 14. A 2D echocardiogram if not done within the past year for further evaluation of elevated BNP and small right pleural effusion. 15. Strict ins and outs. 16. Daily weights. 17. Check urinalysis with culture and sensitivity. Unit #: [id number] #: [id number] Patient: TAMIKO ROCKWELL 18. SCDs for deep venous thrombosis prophylaxis. 19. Protonix for gastrointestinal prophylaxis since the patient will be on Solu-Medrol. 20. Repeat labs in the morning. 21. Additional workup and consultants based on above. Dictated by Velia Tristan/freddy TD: 09/11/2016 14:29 JOB #: [id number] HISTORY AND PHYSICAL Page 1 of 1 X Gabriela Trammell MD X HISTORY AND PHYSICAL
--- NOTE | ~2016-09-11 | CR72 ---
[facility] A Service of [facility] & [facility] RADIOLOGY TEXT RESULTS PATIENT: TAMIKO ROCKWELL LOCATION: [place] [address] : 35 UNIT #: [id number] AGE: [address]: Kavon Huff MD SEX: F ORDER DR: [id number] [facility] [address] [place], [place] [address] [id number] I MR#: [id number] Acc #: [id number] NAME: TAMIKO ROCKWELL : 1935 SEX: F STUDY DATE/TIME: 09/13/2016 03:12 UNIT: [facility] ROOM: [facility] STUDY DESCRIPTION: CR Chest Single View Portable Attending Physician: Kavon Huff M.D. Ordering Physician: Kavon Huff M.D. Primary Care Physician: No Primary Care Physician MEDICAL IMAGING REPORT This report is preliminary unless electronic signature is present EXAM Portable chest, 09/13, 03:12. INDICATIONS Respiratory failure and shortness of air. FINDINGS AP portable chest compared with 09/11/2016. Small right pleural effusion is larger in the interval. Cardiomegaly is stable. Emphysema with mild bibasilar infiltrates appears relatively stable. No pneumothorax. Dictated by... Driss Rivero Jr., M.D. THIS IS AN ELECTRONICALLY VERIFIED REPORT Driss Rivero Jr., M.D. at 09/13/2016 9:26 PM AYAKA/darrick TD: 09/13/2016 07:09 JOB #: [id number] MEDICAL IMAGING REPORT Page 1 of 1 COPY
--- NOTE | ~2016-09-11 | DS ---
Unit #: [id number] #: [id number] Patient: TAMIKO ROCKWELL [id number] [id number] [place], [place] [address] [id number] MR#: [id number] NAME: TAMIKO ROCKWELL. ROOM: 564 Age: 81 Sex: F Admission Date: 09/11/2016 : 1935 Discharge Date: 09/15/2016 Attending Physician: Kavon Huff M.D. Primary Care Physician: No Primary Care Physician DISCHARGE SUMMARY DIAGNOSIS ON ADMISSION Acute on chronic respiratory failure. DIAGNOSES ON DISCHARGE 1. Acute on chronic respiratory failure, improved. 2. Acute exacerbation of chronic obstructive pulmonary disease. 3. History of urinary tract infection. 4. Type 2 diabetes mellitus. 5. Hypothyroidism. 6. Hypertension. 7. Hyperlipidemia. 8. Chronic kidney disease, stage III. 9. Vascular dementia. 10. Acute diastolic heart failure, improved. 11. History of paroxysmal supraventricular tachycardia. 12. Anemia. CONSULTATIONS 1. Dr. Gleason in cardiac consultation. 2. Dr. Wong and in pulmonary consultation. DIAGNOSTIC STUDIES CARDIOVASCULAR: Patient had a 2D echocardiogram done, which revealed ejection fraction of 50% to 55%. She had mild mitral and tricuspid regurgitation present. LABORATORY: Patient's creatinine is 1.5 today, sodium 138, and potassium is 3.9. WBC 16.2, hemoglobin is 7.9, and platelet count is 386. Patient's stool for C. diff. was negative. Urine culture revealed acute coag. negative Staph. aureus infection, which was resistant to penicillin. BNP was 209. IMAGING: Patient's latest chest x-ray reveals slight improvement in interstitial edema and pleural effusion. HOSPITAL COURSE This 81-year-old patient was admitted to [facility] with shortness of air. Details are as per admission H and P. Acute on chronic respiratory failure: Patient initially required higher concentration of oxygen and was transferred to ICU. Gradually, her oxygen was tapered off and she responded well. Acute COPD exacerbation: Patient was treated with IV Solu-Medrol and is Unit #: [id number] #: [id number] Patient: TAMIKO ROCKWELL responding well. Acute diastolic heart failure: Patient was treated with IV diuretics. Patient has responded well and her shortness of air has improved. Today, patient is comfortable and is not in any acute distress. PHYSICAL EXAMINATION VITAL SIGNS: Reveal temperature of 98.8, pulse is 62 per minute, respiratory rate is 16 per minute, and blood pressure is 116/59. HEENT: Revealed no conjunctival congestion. Sclerae are nonicteric. NECK: Supple. Trachea is central. RESPIRATORY: Revealed decreased breath sounds bilaterally. There are no wheezes or crackles. HEART: Regular rate and rhythm. S1 and S2. ABDOMEN: Soft and nontender. Bowel sounds are present in all four quadrants. NEUROLOGIC: Patient is alert to person and place, but confused to time. Is able to move all extremities. SKIN: Warm and dry. RECOMMENDATIONS ON DISCHARGE 1. Condition is stable. 2. Activities as tolerated. DISCHARGE MEDICATIONS 1. DuoNeb mini-neb treatment q.4 hours scheduled. 2. Pulmicort 0.5 mg via nebulizer b.i.d. 3. Prednisone 40 mg p.o. daily x5 days, then 20 mg p.o. daily x5 days and then discontinue. 4. Zoloft 50 mg p.o. daily. 5. BuSpar 7.5 mg p.o. b.i.d. 6. Norvasc 10 mg p.o. daily. 7. Dulera 2 puffs inhalation b.i.d. 8. Lopressor 25 mg p.o. b.i.d. 9. Dulcolax suppository as needed. 10. Colace 100 mg p.o. b.i.d. p.r.n. 11. MiraLAX 17 g p.o. daily. 12. Lasix 20 mg p.o. b.i.d. 13. Lipitor 20 mg p.o. q.h.s. 14. Hydralazine 50 mg p.o. t.i.d. 15. Levemir insulin 8 units subcu. daily. 16. NovoLog sliding scale as per facility. 17. Aspirin 81 mg p.o. daily. 18. Potassium chloride 20 mEq p.o. daily. 19. Synthroid 50 mcg p.o. daily. 20. Doxycycline 100 mg p.o. b.i.d. for his UTI. FOLLOWUP Patient is advised to follow up with primary care physician and Dr. Gleason and Dr. Wong after discharge from rehab. The plan has been discussed with patient's son, Austin, who has shown complete understanding. The plan has also been discussed with pulmonary. Please feel free to call us if there are any questions regarding this hospitalization. Unit #: [id number] #: [id number] Patient: TAMIKO ROCKWELL Total time spent on this discharge was 35 minutes. Dictated by... Velia Mazariegos/darrick TD: 09/15/2016 10:41 JOB #: [id number] DISCHARGE SUMMARY Page 1 of 1 X Kavon Huff MD X DISCHARGE SUMMARY
--- NOTE | ~2016-09-11 | EKG ---
PATIENT: TAMIKO ROCKWELL UNIT #: [id number] Ventricular Rate: 91 BPM Atrial Rate: 91 BPM P-R Interval: 130 ms QRS Duration: 82 ms Q-T Interval: 378 ms QTC Calculation(Bezet): 464 ms P [place]: 67 degrees Calculated R [place]: -16 degrees Calculated T [place]: 100 degrees Diagnosis Line: Normal sinus rhythm Diagnosis Line: T wave abnormality, consider lateral ischemia Diagnosis Line: Abnormal ECG Diagnosis Line: When compared with ECG of 11-SEP-2016 22:44, Diagnosis Line: (unconfirmed) Diagnosis Line: No significant change was found Diagnosis Line: Confirmed by URBAN NIEVES MD ([id number]) on Diagnosis Line: 09/13/2016 7:36:52 AM INTERPRETING MD: JONY
[~2016-09-11 10:33] MED LIST changes: +ASPIRIN81 M2 PO; +ZOLOFT; +ZOLOFT PO
[2016-09-11] MEDS ORDERED: SYNTHROID PO (10:44)
[2016-09-11] MEDS ORDERED: MIRALAX17 GM PO (10:45)
[2016-09-11] MEDS ORDERED: PREDNISONE PO (10:45)
[2016-09-11] MEDS ORDERED: SENNA8.6 M1 PO (10:46)
[2016-09-11] MEDS ORDERED: BREO ELLIPTA 21 EACH INH (10:47)
[2016-09-11] MEDS ORDERED: ZOLOFT50 MG PO (10:47)
[2016-09-11] MEDS ORDERED: ASPIRIN81 MG PO (10:47)
[2016-09-11] MEDS ORDERED: HYDRALAZINE HCL50 MG PO (10:48)
[2016-09-11] MEDS ORDERED: IPRATR-ALBUTEROL3 ML INH (10:48)
[2016-09-11] MEDS ORDERED: BUSPAR PO (10:48)
[2016-09-11] MEDS ORDERED: DOC-Q-LACE100 MG PO (10:49)
[2016-09-11] MEDS ORDERED: NORVASC10 MG PO (10:50)
[2016-09-11] MEDS ORDERED: LIPITOR20 MG PO (10:50)
[2016-09-11] MEDS ORDERED: DULCOLAX10 MG PR (10:51)
[2016-09-11] MEDS ORDERED: ULTRAM PO (10:51)
[2016-09-11] MEDS ORDERED: MILK OF MAGNESIA PO (10:52)
[2016-09-11] MEDS ORDERED: IPRAT-ALBUT 0.5-3 ML NEB (10:52)
[2016-09-11] MEDS ORDERED: NOVOLOG100 U/ML SUBQ (10:53)
[2016-09-11] MEDS ORDERED: LEVEMIR100 UNITS/ SUBQ (10:54)
[2016-09-11 11:01] LABS: ARTERIAL BLOOD GAS PCO2 61.6 mmHg (35.0-45.0); ARTERIAL BLOOD GAS PO2 70.5 mmHg (80.0-100); ARTERIAL BLOOD GAS pH 7.349 (7.350-7.450)
[2016-09-11 11:02] LABS: ARTERIAL BLD GAS O2 SATURATION 93.7 % (90.0-100.0); ARTERIAL BLOOD GAS ALLEN TEST NORMAL; ARTERIAL BLOOD GAS ART SITE RIGHT RADIAL; ARTERIAL BLOOD GAS CARBOXY HB 1.1 %sat (0.0-9.0); ARTERIAL BLOOD GAS DELIVERY VENTURI; ARTERIAL BLOOD GAS HCO3 33.9 mmol/L; ARTERIAL BLOOD GAS MET HB 0.8 %sat (0.0-2.0); ARTERIAL DRAW? YES
[2016-09-11 11:12] LABS: BASOPHIL% 0.2 % (0-2.5); EOSINOPHIL# 0.1 X10e3 (0-0.7); EOSINOPHIL% 0.7 % (0.0-7.0); HEMATOCRIT 30.2 % (35.0-45.0); HEMOGLOBIN 9.5 gm/dL (12.0-16.0); LYMPHOCYTE# 0.9 X10e3 (1.0-3.5); LYMPHOCYTE% 4.3 % (17.0-45.0); MEAN CELL VOLUME 88.6 FL (83-96); MEAN CORPUSCULAR HEMOGLOBIN 27.9 PG (28-34); MEAN CORPUSCULAR HGB CONC 31.5 g/dL (30-36); MEAN PLATELET VOLUME 7.8 FL (6.5-11.5); MONOCYTE# 0.5 X10e3 (0-1.0); MONOCYTE% 2.5 % (3.0-12.0); NEUTROPHIL# 18.9 X10e3 (1.5-7.1); NEUTROPHIL% 92.3 % (40-75); PLATELET COUNT 507 X10e3 (140-420); RED BLOOD COUNT 3.41 X10e (3.90-5.30); RED CELL DISTRIBUTION WIDTH 16.6 % (11.0-15.5); WHITE BLOOD COUNT 20.5 X10e3 (4.0-10.5)
[2016-09-11 11:13] LABS: DIFF IND YES
[2016-09-11 11:20] LABS: PARTIAL THROMBOPLASTIN TIME 21.4 SECONDS (23.5-31.3); PROTHROMBIN TIME (PATIENT) 10.6 SECONDS (10.0-11.7)
[2016-09-11 11:20] LABS: POC - CKMB 2.9 ng/mL (0.0-7.9); POC - TROPONIN <0.05 ng/mL (<=0.05)
[2016-09-11 11:39] LABS: ANISOCYTOSIS SL; PLATELET ESTIMATE NORMAL (NORMAL)
[2016-09-11 11:42] LABS: ALBUMIN SERUM 3.3 g/dL (3.5-5.0); BILIRUBIN, DIRECT 0.1 mg/dL (0.0-0.2); BILIRUBIN,INDIRECT 0.4 mg/dL (0.0-0.9); BILIRUBIN,TOTAL 0.5 mg/dL (0.2-2.0); BUN/CREATININE RATIO 27.69; CALCIUM SERUM 9.2 mg/dL (8.4-10.2); CREATININE SERUM 1.3 mg/dL (0.6-1.4); GLOM FILT RATE Estimated 38.4 mL/min (>60); POTASSIUM 4.3 mmol/L (3.5-5.1); PROTEIN TOTAL SERUM 6.7 g/dL (6.0-8.3)
[2016-09-11 12:54] LABS: POC - CKMB 2.3 ng/mL (0.0-7.9); POC - TROPONIN <0.05 ng/mL (<=0.05)
[2016-09-11 13:54] LABS: URINE SOURCE CLEAN CATCH
[2016-09-11 13:58] LABS: URINE APPEARANCE CLEAR; URINE BILIRUBIN NEG (NEG); URINE BLOOD 1+ (NEG); URINE COLOR YELLOW; URINE GLUCOSE 100 MG/DL (NEG); URINE KETONE TRACE (NEG); URINE LEUKOCYTE ESTERASE 1+ (NEG); URINE NITRATE POS (NEG); URINE PH 5.5 (5-8); URINE PROTEIN 1+ (NEG); URINE SPECIFIC GRAVITY 1.015 (1.003-1.035); URINE UROBILINOGEN 0.2 MG/DL (NEG)
[2016-09-11 14:00] LABS: CULTURE INDICATED? YES; URBCS1 AUWI 50-100 /[HPF] (0-2); URINE SQUAMOUS EPITHELIAL CELL OCC /[HPF]
[2016-09-11 14:24] LABS: URINE BACTERIA AUWI 1+ (NEGATIVE)
[2016-09-11 15:05] LABS: ARTERIAL BLOOD GAS HCO3 28.9 mmol/L; ARTERIAL BLOOD GAS PCO2 51.5 mmHg (35.0-45.0); ARTERIAL BLOOD GAS PO2 73.3 mmHg (80.0-100); ARTERIAL BLOOD GAS pH 7.358 (7.350-7.450)
[2016-09-11 15:06] LABS: ARTERIAL BLD GAS O2 SATURATION 94.8 % (90.0-100.0); ARTERIAL BLOOD GAS ALLEN TEST NORMAL; ARTERIAL BLOOD GAS ART SITE RIGHT RADIAL; ARTERIAL DRAW? YES
[2016-09-11 18:56] LABS: %MB 5.2 % (0.0-4.0); MB 4.3 ng/ml
[2016-09-12 00:11] LABS: MB 3.6 ng/ml
[2016-09-12 03:51] LABS: ARTERIAL BLD GAS O2 SATURATION 94.8 % (90.0-100.0); ARTERIAL BLOOD GAS HCO3 32.6 mmol/L; ARTERIAL BLOOD GAS MET HB 0.4 %sat (0.0-2.0); ARTERIAL BLOOD GAS PCO2 49.6 mmHg (35.0-45.0); ARTERIAL BLOOD GAS PO2 67.3 mmHg (80.0-100); ARTERIAL BLOOD GAS pH 7.426 (7.350-7.450)
[2016-09-12 03:52] LABS: ARTERIAL BLOOD GAS ALLEN TEST NORMAL; ARTERIAL BLOOD GAS ART SITE RIGHT RADIAL; ARTERIAL BLOOD GAS DELIVERY VENTURI MASK; ARTERIAL DRAW? YES
[2016-09-12 06:18] LABS: LEGIONELLA AG URINE NEG (NEG)
[2016-09-12 07:44] LABS: BASOPHIL% 0.2 % (0-2.5); HEMATOCRIT 26.6 % (35.0-45.0); HEMOGLOBIN 8.4 gm/dL (12.0-16.0); LYMPHOCYTE# 0.6 X10e3 (1.0-3.5); LYMPHOCYTE% 3.3 % (17.0-45.0); MEAN CELL VOLUME 87.5 FL (83-96); MEAN CORPUSCULAR HEMOGLOBIN 27.6 PG (28-34); MEAN CORPUSCULAR HGB CONC 31.5 g/dL (30-36); MEAN PLATELET VOLUME 7.7 FL (6.5-11.5); MONOCYTE# 0.5 X10e3 (0-1.0); NEUTROPHIL# 17.2 X10e3 (1.5-7.1); NEUTROPHIL% 93.5 % (40-75); PLATELET COUNT 449 X10e3 (140-420); RED BLOOD COUNT 3.04 X10e (3.90-5.30); WHITE BLOOD COUNT 18.4 X10e3 (4.0-10.5)
[2016-09-12 07:45] LABS: DIFF IND NO
[2016-09-12 08:06] LABS: ALBUMIN SERUM 2.9 g/dL (3.5-5.0); BILIRUBIN,TOTAL 0.3 mg/dL (0.2-2.0); BUN/CREATININE RATIO 31.66; CREATININE SERUM 1.2 mg/dL (0.6-1.4); GLOM FILT RATE Estimated 42.4 mL/min (>60); POTASSIUM 4.2 mmol/L (3.5-5.1); PROTEIN TOTAL SERUM 5.3 g/dL (6.0-8.3)
[2016-09-13 01:39] LABS: ARTERIAL BLOOD GAS CARBOXY HB 0.8 %sat (0.0-9.0); ARTERIAL BLOOD GAS HCO3 31.8 mmol/L; ARTERIAL BLOOD GAS MET HB 0.9 %sat (0.0-2.0); ARTERIAL BLOOD GAS PCO2 46.4 mmHg (35.0-45.0); ARTERIAL BLOOD GAS pH 7.444 (7.350-7.450)
[2016-09-13 01:40] LABS: ARTERIAL BLOOD GAS ALLEN TEST NORMAL; ARTERIAL BLOOD GAS ART SITE RIGHT RADIAL; ARTERIAL BLOOD GAS DELIVERY VENTURI MASK; ARTERIAL DRAW? YES
[2016-09-13 04:47] LABS: HEMATOCRIT 25.5 % (35.0-45.0); MEAN CELL VOLUME 87.9 FL (83-96); MEAN CORPUSCULAR HEMOGLOBIN 27.7 PG (28-34); MEAN CORPUSCULAR HGB CONC 31.5 g/dL (30-36); MEAN PLATELET VOLUME 7.6 FL (6.5-11.5); RED BLOOD COUNT 2.9 X10e (3.90-5.30); WHITE BLOOD COUNT 16.3 X10e3 (4.0-10.5)
[2016-09-13 05:10] LABS: CALCIUM SERUM 8.9 mg/dL (8.4-10.2); CREATININE SERUM 1.6 mg/dL (0.6-1.4); GLOM FILT RATE Estimated 29.9 mL/min (>60); POTASSIUM 4.2 mmol/L (3.5-5.1)
[2016-09-14 08:10] LABS: BUN/CREATININE RATIO 27.85; CALCIUM SERUM 8.6 mg/dL (8.4-10.2); CREATININE SERUM 1.4 mg/dL (0.6-1.4); GLOM FILT RATE Estimated 35.1 mL/min (>60); POTASSIUM 3.4 mmol/L (3.5-5.1)
[2016-09-14 08:14] LABS: HEMATOCRIT 27.3 % (35.0-45.0); HEMOGLOBIN 8.6 gm/dL (12.0-16.0); LYMPHOCYTE# 1.2 X10e3 (1.0-3.5); LYMPHOCYTE% 6.9 % (17.0-45.0); MEAN CELL VOLUME 87.4 FL (83-96); MEAN CORPUSCULAR HEMOGLOBIN 27.4 PG (28-34); MEAN CORPUSCULAR HGB CONC 31.4 g/dL (30-36); MEAN PLATELET VOLUME 7.8 FL (6.5-11.5); MONOCYTE# 0.8 X10e3 (0-1.0); MONOCYTE% 4.7 % (3.0-12.0); NEUTROPHIL# 15.1 X10e3 (1.5-7.1); NEUTROPHIL% 88.4 % (40-75); PLATELET COUNT 447 X10e3 (140-420); RED BLOOD COUNT 3.12 X10e (3.90-5.30); RED CELL DISTRIBUTION WIDTH 16.4 % (11.0-15.5); WHITE BLOOD COUNT 17.1 X10e3 (4.0-10.5)
[2016-09-14 08:16] LABS: DIFF IND YES
[2016-09-14 10:06] LABS: ANISOCYTOSIS SL; PLATELET ESTIMATE INCREASED (NORMAL); RBC NORMAL YES
[2016-09-15 06:23] LABS: HEMATOCRIT 25.1 % (35.0-45.0); HEMOGLOBIN 7.9 gm/dL (12.0-16.0); MEAN CELL VOLUME 86.1 FL (83-96); MEAN CORPUSCULAR HEMOGLOBIN 27.1 PG (28-34); MEAN CORPUSCULAR HGB CONC 31.5 g/dL (30-36); MEAN PLATELET VOLUME 7.4 FL (6.5-11.5); RED BLOOD COUNT 2.91 X10e (3.90-5.30); RED CELL DISTRIBUTION WIDTH 16.4 % (11.0-15.5); WHITE BLOOD COUNT 16.2 X10e3 (4.0-10.5)
[2016-09-15 06:47] LABS: CALCIUM SERUM 8.3 mg/dL (8.4-10.2); CREATININE SERUM 1.5 mg/dL (0.6-1.4); GLOM FILT RATE Estimated 32.4 mL/min (>60); MAGNESIUM 2.3 mg/dL (1.6-3.0); POTASSIUM 3.9 mmol/L (3.5-5.1)
== END 2016-09-16 14:54 | DRG 871 ==
LOC: CED 10:33 → CEDOF 12:45 → CED 13:05 → CEDOF 13:05 → C5C 15:06 → CEDOF 15:06 → C5C 09-12 07:57 → CICCU3 09-12 11:10 → C5C 09-13 17:33
PROVIDERS: Emergency Medicine; Family Medicine; Internal Medicine; Internal Medicine Cardiovascular Disease
PROC: B24BYZZ Ultrasonography of Heart with Aorta using Other Contrast (ICD-10-PCS; 2016-09-11)
PROC: 05H533Z Insertion of Infusion Device into Right Subclavian Vein, Percutaneous Approach (ICD-10-PCS; principal; 2016-09-14)
PROC: B546ZZA Ultrasonography of Right Subclavian Vein, Guidance (ICD-10-PCS; 2016-09-14)
DX: A41.9 Sepsis, unspecified organism (principal); J96.21 Acute and chronic respiratory failure with hypoxia; I50.31 Acute diastolic (congestive) heart failure; J18.9 Pneumonia, unspecified organism; E11.22 Type 2 diabetes mellitus with diabetic chronic kidney disease; I13.0 Hypertensive heart and chronic kidney disease with heart failure and stage 1 through stage 4 chronic kidney disease, or unspecified chronic kidney disease; J44.0 Chronic obstructive pulmonary disease with (acute) lower respiratory infection; I47.1 Supraventricular tachycardia; E11.65 Type 2 diabetes mellitus with hyperglycemia; J44.1 Chronic obstructive pulmonary disease with (acute) exacerbation; N18.3 Chronic kidney disease, stage 3 (moderate); D64.89 Other specified anemias; F01.50 Vascular dementia, unspecified severity, without behavioral disturbance, psychotic disturbance, mood disturbance, and anxiety; E03.9 Hypothyroidism, unspecified; Z87.891 Personal history of nicotine dependence; Z90.49 Acquired absence of other specified parts of digestive tract; Z98.49 Cataract extraction status, unspecified eye; Z79.82 Long term (current) use of aspirin; Z79.4 Long term (current) use of insulin; I08.1 Rheumatic disorders of both mitral and tricuspid valves; E87.6 Hypokalemia
CPT/HCPCS: 36415; 36600; 71010; 74230; 80048; 80053; 80076; 80200; 80202; 81003; 82308; 82550; 82553; 82803; 82947; 83605; 83735; 83880; 84484; 85025; 85027; 85610; 85730; 87040; 87086; 87088; 87186; 87449; 87493; 87899; 92526; 92611; 93005; 93306; 94640; 94760; 94761; 97116; 97163; 97167; 97530; 97535; 99291; G8978-GP; G8979-GP; G8987-GO; G8988-GO; G8996-GN; G8997-GN; G8998-GN; J1815; J1940; J2543; J2920; J2930; J3260; J3370; J3475